=== PATIENT | female | born 1970 | race Caucasian/White ===

== ENCOUNTER 2016-12-24 19:24 | Emergency (ER) | payer OTHER ==
[2016-12-24 19:41] VITALS: BP 105/69; PULSE 79; RESP 16; TEMP 98.1; O2SAT 97
--- NOTE | 2016-12-24 20:09 | UCPHY ---
H & P Time Seen by Provider: 12/24/16 19:57 Patient Type: Established HPI/ROS: This patient presents with a chief complaint of cough, myalgias, headache and fever up to 100.5 degrees all of which began yesterday. She has had a flu shot. She has had no chest pain, sore throat or ear pain. She feels exhausted and feels somewhat short of breath with activity. She denies chest pain. REVIEW OF SYSTEMS: Constitutional: Fever, fatigue Eyes: No complaints ENT: Mild postnasal drip, no sore throat, no ear pain Respiratory: Cough Cardiac: No chest pain Gastrointestinal: No symptoms Genitourinary: Not addressed Musculoskeletal: Generalized myalgias Skin: No rash Neurological: Headache Smoking Status: Never smoked Physical Exam: GENERAL: Well-appearing, well-nourished and in no acute distress. HEAD: Atraumatic, normocephalic. EYES: sclera anicteric, conjunctiva are normal. ENT: TMs normal, nares patent, oropharynx clear without exudates. Moist mucous membranes. NECK: Normal range of motion, supple without lymphadenopathy or JVD. LUNGS: Breath sounds clear to auscultation bilaterally and equal. No wheezes rales or rhonchi. HEART: Regular rate and rhythm EXTREMITIES: Normal range of motion, NEUROLOGICAL: Cranial nerves II through XII grossly intact. Normal speech, normal gait. PSYCH: Normal mood, normal affect. SKIN: Warm, dry, normal turgor, no visible rashes or lesions. Back: No CVA tenderness Constitutional: Initial Vital Signs Temperature (C) 36.7 C 12/24/16 19:35 Heart Rate 79 12/24/16 19:35 Respiratory Rate 16 12/24/16 19:35 Blood Pressure 105/69 12/24/16 19:35 O2 Sat (%) 97 12/24/16 19:35 O2 Delivery Mode Room Air Allergies/Adverse Reactions: Sulfa (Sulfonamide Antibiotics) [Sulfa(Sulfonamide Antibiotics)] Allergy ( Unknown, Verified 12/24/16 19:37) Home Medications: Medication Instructions Recorded Cetirizine [ZyRTEC] 10 mg PO 11/03/12 Nafazadone 11/03/12 Spironolactone 11/03/12 Medical Decision Making Differential Diagnosis: I find nothing that would suggest that this patient has a serious injury nor do I believe that antibiotics are required at this time. I do not feel that laboratory testing or imaging would be helpful in further diagnosis. - Data Points Laboratory Results: 12/24/16 19:45 Influenza Typ A,B (DFA) NEGATIVE FOR FLU (NEGATIVE) Departure - Departure Disposition: Home, Routine, Self-Care Clinical Impression: Viral syndrome Condition: Good Instructions: Viral Syndrome (ED) Additional Instructions: If your symptoms have not improved in 2 or 3 days or if they have not resolved in 6 or 7 days you should be re-evaluated. If you feel that your symptoms are worsening of with increased fever or any new worrisome symptoms you should be seen sooner. Keep herself well hydrated but do not force herself to eat. Rest as needed. Adult Pain & Fever Control: We recommend Acetaminophen (Tylenol) and Ibuprofen (Motrin, Advil) for pain and fever control. When fever is high or pain severe, both drugs can be used at the same time, but at different intervals. Please note the time differences. Your dose is: Acetaminophen [650]mg every 4 to 6 hours ibuprofen [600]mg every [6] hours with food OR naproxen Sodium (Aleve) [440]mg every 12 hours. Note: do not take Acetaminophen with Hydrocodone (Vicodin, Lortab) or Oxycodone (Percocet). These medications also contain Acetaminophen. No more than 3000 mg of Acetaminophen should be taken in 24 hours (for an adult) . The maximal dose of ibuprofen that it is safe in a 24-hour period is 2400 mg. You may take 400 mg every 4 hours, 600 mg every 6 hours or 800 mg every 8 hours safely. - PQRS PQRS Measurement: Not applicable
== END 2016-12-24 20:10 | disposition home or self-care (01) ==
LOC: CED 19:24
DX: B34.9 Viral infection, unspecified (principal)
CPT/HCPCS: 87400-PO; 99214-PO; G0463-PO